=== PATIENT | male | born 1995 | race Caucasian/White ===

== ENCOUNTER 2023-03-22 14:00 | Outpatient (CLI) | payer OTHER, SELFPAY | END 2023-03-22 14:01 | disposition home or self-care (01) | LOC: NFLDREF 03-24 11:53 | DX: R19.7 Diarrhea, unspecified (principal) | CPT/HCPCS: 87338; 87505 ==

== ENCOUNTER 2024-05-05 09:54 | Outpatient (CLI) | payer OTHER, SELFPAY | END 2024-05-05 09:55 | disposition home or self-care (01) | PROVIDERS: PCP Family Medicine; Visit Provider Family Medicine | DX: Z00.00 Encounter for general adult medical examination without abnormal findings (principal); R80.9 Proteinuria, unspecified; E11.9 Type 2 diabetes mellitus without complications; R53.83 Other fatigue; I49.9 Cardiac arrhythmia, unspecified | CPT/HCPCS: 80048; 80061; 82043; 82570; 84443 ==